=== PATIENT | female | born 1980 | race Caucasian/White ===

== ENCOUNTER 2019-03-24 09:59 | Emergency (ER) | payer OTHER ==
[2019-03-24 10:12] VITALS: BMI 34.2
[2019-03-24 10:14] VITALS: O2SAT 99
[2019-03-24] MEDS ORDERED: Sodium Chloride 0.9% 1,000 ML IV ONE (10:49)
[2019-03-24 10:55] LABS: BASO % 0.4 % (0.0-2.0); EOS # 0.4 K/uL (0.0-0.7); HEMOGLOBIN 12.3 g/dL (11.0-16.0); LYMPH # 1.9 K/uL (1.0-4.3); LYMPH % 25.6 % (20.0-40.0); MEAN CELL VOLUME 88.8 fL (81.0-99.0); MEAN CORPUSCULAR HEMOGLOBIN 30.5 pg (27.0-31.0); MEAN CORPUSCULAR HGB CONC 34.4 g/dL (33.0-37.0); MEAN PLATELET VOLUME 9.8 fL (7.2-11.7); MONO # 0.4 K/uL (0.0-0.8); MONO % 5.9 % (0.0-10.0); NEUT # 4.5 K/uL (1.8-7.0); NEUT % 62.1 % (50.0-75.0); RBC 4.03 Mil/uL (3.80-5.20); RED CELL DISTRIBUTION WIDTH 14.2 % (11.5-14.5); WHITE BLOOD COUNT 7.2 K/uL (4.8-10.8)
--- NOTE | 2019-03-24 11:06 | C.PDOC ---
History Of Present Illness 38 y/o female presents to the ER c/o right-sided abdominal pain and lower back pain for x3 days. Pt reports she saw some vaginal spotting today after urinating. Patient is , LMP was 03/20/19 and had (+) test at home. She denies vomiting, diarrhea, dysuria, fever. Time Seen by Provider: 03/24/19 10:12 Chief Complaint (Nursing): Abdominal Pain History Per: Patient History/Exam Limitations: no limitations Onset/Duration Of Symptoms: Days (x3) Current Symptoms Are (Timing): Still Present Severity: Mild Location Of Pain/Discomfort: RUQ Past Medical History Reviewed: Historical Data, Nursing Documentation, Vital Signs Vital Signs: Last Vital Signs Temp 98.4 F 03/24/19 10:13 Pulse 66 03/24/19 10:13 Resp 18 03/24/19 10:13 BP 111/68 03/24/19 10:13 Pulse Ox 99 03/24/19 10:13 - Medical History PMH: No Chronic Diseases Family History: States: No Known Family Hx - Social History Hx Tobacco Use: No Hx Alcohol Use: No Hx Substance Use: No - Immunization History Hx Tetanus Toxoid Vaccination: No Hx Influenza Vaccination: No Hx Pneumococcal Vaccination: No Review Of Systems Constitutional: Negative for: Fever, Chills Cardiovascular: Negative for: Chest Pain Respiratory: Negative for: Shortness of Breath Gastrointestinal: Positive for: Abdominal Pain (right ). Negative for: Vomiting Genitourinary: Positive for: Vaginal Bleeding (spotting ). Negative for: Dysuria, Vaginal Discharge Musculoskeletal: Positive for: Back Pain (low) Skin: Negative for: Rash Physical Exam - Physical Exam Appears: Well, Non-toxic, No Acute Distress Skin: Warm, Dry, No Rash Head: Normacephalic Oral Mucosa: Moist Cardiovascular: Rhythm Regular Respiratory: Normal Breath Sounds, No Rales, No Rhonchi, No Wheezing Gastrointestinal/Abdominal: Bowel Sounds, Soft, Tenderness (mild suprapubic and RLQ TTP), No Distention, No Guarding, No Rebound Back: No CVA Tenderness Extremity: No Pedal Edema, No Calf Tenderness Neurological/Psych: Oriented x3 ED Course And Treatment - Laboratory Results Result Diagrams: 03/24/19 10:48 03/24/19 10:48 O2 Sat by Pulse Oximetry: 99 (RA) Pulse Ox Interpretation: Normal - CT Scan/US TRANSVAGINAL US Other Rad Studies (CT/US): Read By Radiologist, Radiology Report Reviewed CT/US Interpretation: Accession No. : [id number]. Patient Name / ID : HOMAR AREVALO / [id number]. Exam Date : 03/24/2019 11:30:37 ( Approved ). Study Comment : Sex / Age : F / 38Y. Creator : Darcy Sharma MD. Dictator : Darcy Sharma MD. Pipe Fitter Supervisor Maintenance : Chief Lifestyle Officer : Darcy Sharma MD. Approver2 : Report Date : 03/24/2019 12:54:11. My Comment : . Date of service: 03/24/2019. PROCEDURE: OB Pelvic Ultrasound. HISTORY: PELVIC PAIN, . COMPARISON: None available. FINDINGS: UTERUS: Uterus measures 10.5 x 6.3 x 6.6 cm. Anteverted and normal in size. There is a 2.4 x 2.2 x 2.9 cm intramural posterior wall fibroid in the midbody of the uterus. The central endometrial echo complex measures 4 mm. There are 2 small cystic areas within the endometrium. No evidence for intrauterine gestational sac. CERVIX: Long and closed. No cervical abnormality seen. RIGHT OVARY: Measures 3.1 x 1.1 x 3.0 cm. No mass. Normal flow. LEFT OVARY: Measures 4.2 x 2.1 x 2.9 cm. No mass. Normal flow. There is a 1.2 x 0.7 x 1.1 cm simple cyst. FREE FLUID: None. OTHER FINDINGS: None. IMPRESSION: Two small cystic areas within the central endometrial echo complex. These are indeterminate and could represent cystic changes versus small early gestational sacs. Clinical and ultrasound follow-up is recommended for further evaluation. ABDOMINAL US Other Rad Studies (CT/US): Read By Radiologist, Radiology Report Reviewed CT/US Interpretation: Accession No. : [id number]. Patient Name / ID : GUNJAN AREVALO / [id number]. Exam Date : 03/24/2019 11:22:13 ( Approved ). Study Comment : Sex / Age : F / 38Y. Creator : Vivek Jaeger MD. Dictator : Vivek Jaeger MD. Pipe Fitter Supervisor Maintenance : Chief Lifestyle Officer : Vivek Jaeger MD. Approver2 : Report Date : 03/24/2019 12:07:10. My Comment : . Date of service: 03/24/2019. HISTORY: right flank pain. COMPARISON: None. TECHNIQUE: Sonographic evaluation of the right upper quadrant of the abdomen. FINDINGS: LIVER: Measures 15.0 cm in length. Normal echogenicity of the liver parenchyma. No mass. No intrahepatic bile duct dilatation. GALLBLADDER: Status post cholecystectomy. COMMON BILE DUCT: Measures 4 mm. No stones. No dilatation. PANCREAS: Unremarkable as visualized. No mass. No ductal dilatation. RIGHT KIDNEY: Measures 11.4 cm in length. Normal echogenicity. No calculus, mass, or hydronephrosis. AORTA: No aneurysmal dilatation. IVC: Unremarkable. OTHER FINDINGS: None . IMPRESSION: Status post cholecystectomy. Otherwise unremarkable examination. Progress Note: Blood work, UA, transvaginal and abdominal US ordered and reviewed. Patient given IV NS bolus. Reevaluation Time: 13:00 Reassessment Condition: Improved (On reassessment, patient is resting comfortably, in no pain or distress. UA (+) for UTI - PO Macrobid given. Beta only 995, US shows two small cystic structure in endometrial canal. Patient instructed to return in 48 hours for repeat beta quant and transvaginal US. She understands she should return sooner if symptoms worsen.) Disposition Counseled Patient/Family Regarding: Studies Performed, Diagnosis, Need For Followup - Disposition Referrals: [facility] [Outside] Disposition: HOME/ ROUTINE Disposition Time: 13:05 Condition: STABLE Additional Instructions: RETURN TO EMERGENCY ROOM IN 2 DAYS FOR REPEAT HORMONE LEVEL AND ULTRASOUND RETURN SOONER IF YOUR SYMPTOMS BECOME WORSE REGRESE AL SALN DE EMERGENCIA EN 2 CAI PARA REPETIR EL NIVEL DE HORMONA Y EL ULTRASONIDO REGRESAR PRONTO A SI STEVIE SNTOMAS SE HACEN PEOR Prescriptions: Nitrofurantoin Macrocrystals [Macrobid] 1 cap PO BID #14 cap Instructions: Bleeding With (DC) Forms: Email Data Source (Mohawk) Print Language: MONGOLIAN - Clinical Impression Clinical Impression: Pelvic pain affecting , Vaginal bleeding during , UTI in - Scribe Statement The provider has reviewed the documentation as recorded by the Scribalfa Ceja Do Provider Attestation: All medical record entries made by the Scribe were at my direction and person ally dictated by me. I have reviewed the chart and agree that the record accurately reflects my personal performance of the history, physical exam, medical decision making, and the department course for this patient. I have also personally directed, reviewed, and agree with the discharge instructions and disposition.
[2019-03-24 11:07] LABS: ALB/GLOB RATIO 1.3 (1.0-2.1); ALT/SGPT 17 U/L (9-52); AST/SGOT 29 U/L (14-36); BLOOD UREA NITROGEN 9 mg/dL (7-17); CALCIUM 8.5 mg/dl (8.6-10.4); GFR NON-AFRICAN AMERICAN > 60
[2019-03-24 11:35] LABS: SQUAMOUS EPITHIAL 8 /hpf (0-5); URINE BACTERIA MANY (<OCC); URINE BILIRUBIN NEGATIVE (NEGATIVE); URINE BLOOD 2+ (NEGATIVE); URINE CLARITY Clear (Clear); URINE COLOR Straw (YELLOW); URINE GLUCOSE (UA) NORMAL (Normal); URINE LEUKOCYTE ESTERASE NEG Leu/uL (Negative); URINE PROTEIN NEGATIVE (NEGATIVE); URINE UROBILINOGEN NORMAL mg/dL (0.2-1.0)
--- NOTE | 2019-03-24 12:10 | US ---
Date of service: 03/24/2019 HISTORY: right flank pain COMPARISON: None. TECHNIQUE: Sonographic evaluation of the right upper quadrant of the abdomen. FINDINGS: LIVER: Measures 15.0 cm in length. Normal echogenicity of the liver parenchyma. No mass. No intrahepatic bile duct dilatation. GALLBLADDER: Status post cholecystectomy COMMON BILE DUCT: Measures 4 mm. No stones. No dilatation. PANCREAS: Unremarkable as visualized. No mass. No ductal dilatation. RIGHT KIDNEY: Measures 11.4 cm in length. Normal echogenicity. No calculus, mass, or hydronephrosis. AORTA: No aneurysmal dilatation. IVC: Unremarkable. OTHER FINDINGS: None . IMPRESSION: Status post cholecystectomy. Otherwise unremarkable examination.
--- NOTE | 2019-03-24 12:58 | US ---
Date of service: 03/24/2019 PROCEDURE: OB Pelvic Ultrasound HISTORY: PELVIC PAIN, COMPARISON: None available. FINDINGS: UTERUS: Uterus measures 10.5 x 6.3 x 6.6 cm. Anteverted and normal in size. There is a 2.4 x 2.2 x 2.9 cm intramural posterior wall fibroid in the midbody of the uterus. The central endometrial echo complex measures 4 mm. There are 2 small cystic areas within the endometrium. No evidence for intrauterine gestational sac CERVIX: Long and closed. No cervical abnormality seen. RIGHT OVARY: Measures 3.1 x 1.1 x 3.0 cm. No mass. Normal flow. LEFT OVARY: Measures 4.2 x 2.1 x 2.9 cm. No mass. Normal flow. There is a 1.2 x 0.7 x 1.1 cm simple cyst. FREE FLUID: None. OTHER FINDINGS: None. IMPRESSION: Two small cystic areas within the central endometrial echo complex. These are indeterminate and could represent cystic changes versus small early gestational sacs. Clinical and ultrasound follow-up is recommended for further evaluation.
[2019-03-24 13:17] VITALS: BP 100/58; PULSE 64; RESP 18; TEMP 98.1
== END 2019-03-24 13:37 | disposition home or self-care (01) ==
LOC: C.ER 09:59
DX: O23.41 Unspecified infection of urinary tract in pregnancy, first trimester (principal); O26.891 Other specified pregnancy related conditions, first trimester; R10.2 Pelvic and perineal pain; O20.9 Hemorrhage in early pregnancy, unspecified; Z3A.00 Weeks of gestation of pregnancy not specified
CPT/HCPCS: 76705; 76805; 76817; 80053; 81001; 81025; 84702; 85025; 86850; 86900; 87086; 87181; 96360; 99285; J7030

== ENCOUNTER 2019-03-27 13:34 | Emergency (ER) | payer OTHER ==
[2019-03-27 13:34] VITALS: BMI 34.2
[2019-03-27 16:12] VITALS: O2SAT 100
--- NOTE | 2019-03-27 16:52 | C.PDOC ---
History Of Present Illness 39 y/o female presents to the ER for repeat US. Patient was evaluated for abdominal pain and back pain in [facility] 3 days ago. At the time, she had an US which showed questionable IUP and she had low beta levels. Patient reports that she was discharged and instructed to return to the ER for repeat US. She notes that she feels better today. Denies having fever,chills, nausea,vomiting, abdominal pain, back pain, vaginal bleeding, and vaginal discharge. Time Seen by Provider: 03/27/19 13:53 Chief Complaint (Nursing): Female Genitourinary History Per: Patient History/Exam Limitations: no limitations Past Medical History Reviewed: Historical Data, Nursing Documentation, Vital Signs Vital Signs: Last Vital Signs Temp 98.2 F 03/27/19 13:42 Pulse 64 03/27/19 16:11 Resp 19 03/27/19 16:11 BP 109/72 03/27/19 16:11 Pulse Ox 100 03/27/19 16:11 - Medical History PMH: No Chronic Diseases Surgical History: Cholecystectomy Family History: States: No Known Family Hx - Social History Hx Tobacco Use: No Hx Alcohol Use: No Hx Substance Use: No - Immunization History Hx Tetanus Toxoid Vaccination: No Hx Influenza Vaccination: No Hx Pneumococcal Vaccination: No Review Of Systems Except As Marked, All Systems Reviewed And Found Negative. Constitutional: Negative for: Fever, Chills Gastrointestinal: Negative for: Nausea, Vomiting, Abdominal Pain Genitourinary: Negative for: Vaginal Discharge, Vaginal Bleeding Physical Exam - Physical Exam Appears: Non-toxic, No Acute Distress Skin: Normal Color, Warm, Dry Head: Atraumatic, Normacephalic Eye(s): bilateral: Normal Inspection Nose: Normal Oral Mucosa: Moist Neck: Supple Chest: Symmetrical Cardiovascular: Rhythm Regular Respiratory: Normal Breath Sounds, No Rales, No Rhonchi, No Wheezing Gastrointestinal/Abdominal: Normal Exam, Soft, No Tenderness, No Guarding, No Rebound Neurological/Psych: Oriented x3, Normal Speech ED Course And Treatment - Laboratory Results Lab Results: Beta HCG, Quant 2671.90 mIU/ML 03/27/19 14:05 O2 Sat by Pulse Oximetry: 100 (RA) Pulse Ox Interpretation: Normal - CT Scan/US US- Pelvis Other Rad Studies (CT/US): Read By Radiologist, Radiology Report Reviewed CT/US Interpretation: Date of service: 03/27/2019. Indication: , pelvic pain. Comparison: 1st trimester ultrasound performed 03/24/19. Technique: Real-time transabdominal pelvic ultrasound was performed. In addition a transvaginal pelvic ultrasound was necessary to better depict pelvic anatomy. Findings: Uterus measures approximately 9.8 x 7.0 x 7.1 cm. Anteverted. 2.4 x 1.8 x 2.0 cm posterior uterine fibroid. Cervical length measures approximately 4.5 cm. The endometrium measures approximately 1.3 cm in diameter. Small cystic focus which may represent gestational sac measures 0.4 cm, too small for gestational age calculation. No evidence of pole or yolk sac at this time. The right ovary measures 2.5 x 1.6 x 2.3 cm. The left ovary measures 3.0 x 2.1 x 2.8 cm. Blood flow was demonstrated to both ovaries. Impression: Small cystic focus which may represent intrauterine gestational sac measures approximately 0.4 cm, too small for gestational age calculation. No evidence of pole or yolk sac at this time. Correlate clinically including quantitative beta HCG and follow-up as indicated. 2.4 x 1.8 x 2.0 cm posterior uterine fibroid. Progress Note: US- Pelvis and Beta-HCG ordered. Disposition - Disposition Disposition: HOME/ ROUTINE Disposition Time: 17:54 Condition: STABLE Additional Instructions: Follow up with OBGYN within 1-2 days. Return to ED in 3-4 days to repeat beta HCG and Pelvic US. Instructions: Acute Pelvic Pain (DC) Forms: [employer] (Panamanian) - Clinical Impression Clinical Impression: Pelvic pain affecting - PA / TAKER OUT / Resident Statement MD/DO has reviewed & agrees with the documentation as recorded. - Scribe Statement The provider has reviewed the documentation as recorded by the Ajit Manzo Provider Attestation All medical record entries made by the Scribe were at my direction and personally dictated by me. I have reviewed the chart and agree that the record accurately reflects my personal performance of the history, physical exam, medical decision making, and the department course for this patient. I have also personally directed, reviewed, and agree with the discharge instructions and disposition.
--- NOTE | 2019-03-27 17:28 | US ---
Date of service: 03/27/2019 Indication: , pelvic pain Comparison: 1st trimester ultrasound performed 03/24/19 Technique: Real-time transabdominal pelvic ultrasound was performed. In addition a transvaginal pelvic ultrasound was necessary to better depict pelvic anatomy. Findings: Uterus measures approximately 9.8 x 7.0 x 7.1 cm. Anteverted. 2.4 x 1.8 x 2.0 cm posterior uterine fibroid. Cervical length measures approximately 4.5 cm. The endometrium measures approximately 1.3 cm in diameter. Small cystic focus which may represent gestational sac measures 0.4 cm, too small for gestational age calculation. No evidence of pole or yolk sac at this time. The right ovary measures 2.5 x 1.6 x 2.3 cm. The left ovary measures 3.0 x 2.1 x 2.8 cm. Blood flow was demonstrated to both ovaries. Impression: Small cystic focus which may represent intrauterine gestational sac measures approximately 0.4 cm, too small for gestational age calculation. No evidence of pole or yolk sac at this time. Correlate clinically including quantitative beta HCG and follow-up as indicated. 2.4 x 1.8 x 2.0 cm posterior uterine fibroid.
[2019-03-27 18:28] VITALS: BP 126/81; PULSE 82; RESP 18; TEMP 98.1
== END 2019-03-27 18:28 | disposition home or self-care (01) ==
LOC: C.ER 13:34
DX: O26.891 Other specified pregnancy related conditions, first trimester (principal); R10.2 Pelvic and perineal pain; Z3A.00 Weeks of gestation of pregnancy not specified

== ENCOUNTER 2019-03-31 08:39 | Emergency (ER) | payer OTHER | END 2019-03-31 11:38 | disposition home or self-care (01) | LOC: C.ER 08:39 ==

== ENCOUNTER 2019-04-16 11:16 | Emergency (ER) | payer OTHER ==
[2019-04-16 11:27] VITALS: BMI 32.8
[2019-04-16 11:31] VITALS: RESP 18
[2019-04-16 11:49] LABS: SQUAMOUS EPITHIAL 8 /hpf (0-5); URINE BILIRUBIN NEGATIVE (NEGATIVE); URINE BLOOD 2+ (NEGATIVE); URINE CLARITY Hazy (Clear); URINE COLOR Yellow (YELLOW); URINE GLUCOSE (UA) NORMAL (Normal); URINE HYALINE CAST 0-2 /lpf (0-2); URINE LEUKOCYTE ESTERASE NEG Leu/uL (Negative); URINE PROTEIN 1+ mg/dL (NEGATIVE); URINE UROBILINOGEN NORMAL mg/dL (0.2-1.0)
[2019-04-16 11:51] LABS: HCG,QUALITATIVE URINE POSITIVE (NEGATIVE)
[2019-04-16] MEDS ORDERED: Sodium Chloride 0.9% 1,000 ML IV ONE (11:53)
--- NOTE | 2019-04-16 11:58 | C.PDOC ---
History Of Present Illness 39 year old female presents to ED with complaint of abdominal cramping that began last night. Patient states that the pain worsened today. Patient is P:1 A:2. Patient's last normal menstrual period was on 02/17. She also states th at she saw some blood twice after wiping from urinating. She also complains of nausea and headache. She denies fever, chill, and diarrhea. Time Seen by Provider: 04/16/19 11:41 Chief Complaint (Nursing): Abdominal Pain History Per: Patient History/Exam Limitations: no limitations Onset/Duration Of Symptoms: Hrs (12) Current Symptoms Are (Timing): Still Present Location Of Pain/Discomfort: Diffuse Radiation Of Pain To:: None Quality Of Discomfort: Cramping Associated Symptoms: Nausea. denies: Fever, Chills, Vomiting, Diarrhea Abnormal Vaginal Bleeding: Yes Last Menstral Period: 02/17/19 : 4 Para: 1 Miscarriage: 2 Past Medical History Reviewed: Historical Data, Nursing Documentation, Vital Signs Vital Signs: Last Vital Signs Temp 98.9 F 04/16/19 11:27 Pulse 73 04/16/19 11:27 Resp 18 04/16/19 11:27 BP 96/59 L 04/16/19 11:27 Pulse Ox 97 04/16/19 11:27 Primary Care Provider: Non [facility] Provider, - Medical History PMH: No Chronic Diseases Surgical History: Cholecystectomy Family History: States: Unknown Family Hx - Social History Hx Tobacco Use: No Hx Alcohol Use: No Hx Substance Use: No - Immunization History Hx Tetanus Toxoid Vaccination: No Hx Influenza Vaccination: No Hx Pneumococcal Vaccination: No Review Of Systems Constitutional: Negative for: Fever, Chills Gastrointestinal: Positive for: Nausea, Abdominal Pain (cramping). Negative for: Diarrhea, Constipation, Hematochezia Genitourinary: Positive for: Vaginal Bleeding. Negative for: Vaginal Discharge, Pelvic Pain Neurological: Positive for: Headache Physical Exam - Physical Exam Appears: Well, Non-toxic, No Acute Distress Skin: Normal Color, Warm, Dry Head: Atraumatic, Normacephalic Neck: Normal ROM, Supple Chest: Symmetrical, No Deformity Cardiovascular: Rhythm Regular, No Murmur Respiratory: No Accessory Muscle Use, No Rales, No Rhonchi, No Wheezing Gastrointestinal/Abdominal: Bowel Sounds (normoactive), Soft, No Tenderness, No Guarding, No Rebound Extremity: Capillary Refill (<2 seconds) Extremity: Bilateral: Atraumatic, Normal Color And Temperature, Normal ROM Pulses: Left Radial: Normal, Right Radial: Normal Neurological/Psych: Oriented x3, Normal Speech, Normal Cognition ED Course And Treatment - Laboratory Results Result Diagrams: 04/16/19 12:05 04/16/19 12:05 Lab Results: Urine Color Yellow (YELLOW) 04/16/19 11:41 Urine Clarity Hazy (Clear) 04/16/19 11:41 Urine pH 6.0 (5.0-8.0) 04/16/19 11:41 Ur Specific [place] 1.021 (1.003-1.030) 04/16/19 11:41 Urine Protein 1+ mg/dL (NEGATIVE) H 04/16/19 11:41 Urine Glucose (UA) Normal mg/dL (Normal) 04/16/19 11:41 Urine Ketones Negative mg/dL (NEGATIVE) 04/16/19 11:41 Urine Blood 2+ (NEGATIVE) H 04/16/19 11:41 Urine Nitrate Negative (NEGATIVE) 04/16/19 11:41 Urine Bilirubin Negative (NEGATIVE) 04/16/19 11:41 Urine Urobilinogen Normal mg/dL (0.2-1.0) 04/16/19 11:41 Ur Leukocyte Esterase Neg Maddi/uL (Negative) 04/16/19 11:41 Urine WBC (Auto) 1 /hpf (0-5) 04/16/19 11:41 Urine RBC (Auto) 15 /hpf (0-3) H 04/16/19 11:41 Ur Squamous Epith Cells 8 /hpf (0-5) H 04/16/19 11:41 Hyaline Casts 0-2 /lpf (0-2) 04/16/19 11:41 Urine HCG, Qual Positive (NEGATIVE) 04/16/19 11:41 Urine HCG, Qual Positive (NEGATIVE) 04/16/19 11:41 O2 Sat by Pulse Oximetry: 97 (in RA) Pulse Ox Interpretation: Normal - CT Scan/US Transvaginal US Other Rad Studies (CT/US): Read By Radiologist CT/US Interpretation: Impression: Live single intrauterine with estimated gestational age 6 weeks 4 days. heart rate 148.3 bpm. Advise an anomaly screen at 16-18 weeks gestational age. 4.0 x 3.7 x 4.3 cm probable posterior uterine fibroid. Medical Decision Making Medical Decision Making: Impression: 39 year old female presents to ED with complaint of abdominal cramping that began last night. Initial Plan: Transvaginal US type and screen CMP CBC B-HCG urine culture UA Reglan IV fluids 1437 pt with vag spotting when preg us show iup with fhr, no ovarian cysts. blood type O positive. d/c home with [address] man f/u and pelvis rest. Disposition Counseled Patient/Family Regarding: Studies Performed, Diagnosis, Need For Followup, Rx Given - Disposition Disposition: HOME/ ROUTINE Disposition Time: 14:35 Condition: GOOD Additional Instructions: Follow up with your warehouse operator in 1-2 days. Nothing in vagina. no sex., no douching, no tampons. Tylenol for pain if needed. Drink increased fluids, stay well hydrated. Carina un seguimiento con gibbs gineclogo en 1-2 kunz. [place] en la vagina. Sin sexo. Sin duchas ni tampones. Tylenol para el dolor si es necesario. Beber ms lquidos, mantenerse edson hidratado. Instructions: Threatened Miscarriage (DC) Forms: [facility] (Telugu), General Discharge Instructions - Clinical Impression Clinical Impression: Threatened - PA / BUILDING OPERATOR / Resident Statement / has reviewed & agrees with the documentation as recorded. (Sugar Echeverria) - Scribe Statement The provider has reviewed the documentation as recorded by the Scribe (Sugar Echeverria) All medical record entries made by the Scribe were at my direction and personally dictated by me. I have reviewed the chart and agree that the record accurately reflects my personal performance of the history, physical exam, medical decision making, and the department course for this patient. I have also personally directed, reviewed, and agree with the discharge instructions and disposition.
[2019-04-16 12:13] LABS: BASO % 0.5 % (0.0-2.0); EOS # 0.4 K/uL (0.0-0.7); EOS % 4.6 % (0.0-4.0); HEMOGLOBIN 12.8 g/dL (11.0-16.0); LYMPH # 2.3 K/uL (1.0-4.3); LYMPH % 28.8 % (20.0-40.0); MEAN CELL VOLUME 88.4 fL (81.0-99.0); MEAN CORPUSCULAR HEMOGLOBIN 30.4 pg (27.0-31.0); MEAN CORPUSCULAR HGB CONC 34.4 g/dL (33.0-37.0); MEAN PLATELET VOLUME 10.5 fL (7.2-11.7); MONO # 0.6 K/uL (0.0-0.8); NEUT # 4.7 K/uL (1.8-7.0); NEUT % 59.1 % (50.0-75.0); NRBC % 0.1 % (0.0-2.0); RBC 4.2 Mil/uL (3.80-5.20); RED CELL DISTRIBUTION WIDTH 14.6 % (11.5-14.5)
[2019-04-16 12:27] LABS: ALB/GLOB RATIO 1.1 (1.0-2.1); ALBUMIN 3.9 g/dL (3.5-5.0); ALT/SGPT 20 U/L (9-52); AST/SGOT 32 U/L (14-36); BLOOD UREA NITROGEN 15 mg/dL (7-17); CALCIUM 9.6 mg/dl (8.6-10.4); GFR NON-AFRICAN AMERICAN > 60
[2019-04-16] MEDS ORDERED: Sodium Chloride 0.9% 1,000 ML ONE (13:11)
[2019-04-16 14:01] VITALS: BP 96/64; PULSE 64; TEMP 98.4
--- NOTE | 2019-04-16 14:03 | US ---
Date of service: 04/16/2019 Indication: preg with ab pain Comparison: Ob transvaginal ultrasound performed 03/31/19 Technique: Real-time transabdominal pelvic ultrasound was performed. In addition a transvaginal pelvic ultrasound was necessary to better depict pelvic anatomy. Findings: The uterus measures approximately 11.6 x 7.0 x 7.5 cm. Anteverted. Cervix length measures approximately 4.1 cm. 4.0 x 3.7 x 4.3 cm heterogeneous uterine mass consistent with posterior uterine fibroid. There is a single intrauterine fetus present. 3 mm yolk sac. The gestational sac measures 2.1 cm and is compatible with a gestational age of 6 weeks 4 days. The crown-rump length measures 0.7 cm and is compatible with a gestational age of 6 weeks 4 days. There is heart motion which measured 148.3 BPM. The right ovary measures 2.7 x 2.4 x 2.3 cm. The left ovary measures 3.3 x 1.0 x 2.7 cm and 1.9 x 0.9 x 1.4 cm probable corpus luteum. Blood flow was demonstrated to both ovaries. Impression: Live single intrauterine with estimated gestational age 6 weeks 4 days. heart rate 148.3 bpm. Advise an anomaly screen at 16-18 weeks gestational age. 4.0 x 3.7 x 4.3 cm probable posterior uterine fibroid.
[2019-04-16 14:08] VITALS: O2SAT 97
== END 2019-04-16 15:01 | disposition home or self-care (01) ==
LOC: C.ER 11:16
DX: O20.0 Threatened abortion (principal); Z3A.01 Less than 8 weeks gestation of pregnancy
CPT/HCPCS: 76805; 76817; 80053; 81001; 84702; 84703; 85025; 86850; 86900; 87086; 96360; 99285; J2765; J7030

== ENCOUNTER 2019-04-27 10:40 | Emergency (ER) | payer OTHER ==
[2019-04-27 10:40] VITALS: BMI 32.8
[2019-04-27 10:45] VITALS: RESP 20
--- NOTE | 2019-04-27 11:08 | C.PDOC ---
History Of Present Illness 39 y/o female, A2, states she is about 8-10 weeks , presents to the ER complaining of cramping abdominal pain and vaginal spotting. Patient was evaluated for similar complaint in [facility] on 04/16/19. At the time, patient had labwork and US which showed live IUP. She notes that her symptoms had resolved but the symptoms returned 4 days ago. She states that she passed 1 clot today prompting her visit to the ER. Denies having fever,chills, headache,dizziness, nausea, vomiting, back pain. Denies chest pain or SOB. She notes she has an appointment at [place] for care tomorrow. No other complaints at this time. Time Seen by Provider: 04/27/19 10:49 Chief Complaint (Nursing): Female Genitourinary History Per: Patient History/Exam Limitations: no limitations Onset/Duration Of Symptoms: Days Current Symptoms Are (Timing): Still Present Severity: Moderate Past Medical History Reviewed: Historical Data, Nursing Documentation, Vital Signs Vital Signs: Last Vital Signs Temp 98.9 F 04/27/19 10:42 Pulse 70 04/27/19 10:42 Resp 20 04/27/19 10:42 BP 113/66 04/27/19 10:42 Pulse Ox 97 04/27/19 10:42 - Medical History PMH: No Chronic Diseases Surgical History: Cholecystectomy Family History: States: No Known Family Hx - Social History Hx Tobacco Use: No Hx Alcohol Use: No Hx Substance Use: No - Immunization History Hx Tetanus Toxoid Vaccination: No Hx Influenza Vaccination: No Hx Pneumococcal Vaccination: No Review Of Systems Except As Marked, All Systems Reviewed And Found Negative. Constitutional: Negative for: Fever, Chills Cardiovascular: Negative for: Chest Pain Respiratory: Negative for: Shortness of Breath Gastrointestinal: Positive for: Abdominal Pain. Negative for: Nausea, Vomiting Genitourinary: Positive for: Other (vaginal spotting) Physical Exam - Physical Exam Appears: Non-toxic, No Acute Distress Skin: Normal Color, Warm, Dry Head: Atraumatic, Normacephalic Eye(s): bilateral: Normal Inspection Nose: Normal Oral Mucosa: Moist Neck: Supple Chest: Symmetrical Cardiovascular: Rhythm Regular Respiratory: Normal Breath Sounds, No Rales, No Rhonchi, No Wheezing Gastrointestinal/Abdominal: Soft, No Tenderness, No Guarding, No Rebound Back: No Vertebral Tenderness Neurological/Psych: Oriented x3, Normal Speech ED Course And Treatment - Laboratory Results Result Diagrams: 04/27/19 11:21 04/27/19 11:21 O2 Sat by Pulse Oximetry: 97 (RA) Pulse Ox Interpretation: Normal - CT Scan/US US TRANSVAGINAL Other Rad Studies (CT/US): Read By Radiologist, Radiology Report Reviewed CT/US Interpretation: Accession No. : [id number]. Patient Name / ID : HOMAR AREVALO / [id number]. Exam Date : 04/27/2019 11:31:27 ( Approved ). Study Comment : Sex / Age : F / 39Y. Creator : Lorenzo Rivera. Dictator : Mane Dodson MD. Bobbin Presser : Wood Router Hand : Mane Dodson MD. Approver2 : Report Date : 04/27/2019 11:50:11. My Comment : . Pelvic ultrasound. HISTORY: . Vaginal bleeding. Comparison: 04/16/2019. Technique: Real-time sonography was performed through the pelvis utilizing transabdominal technique. Findings: Uterus: 12.1 x 7.9 x 7.6 centimeters. Homogeneous echotexture. Anteverted. Cervix measures 3.39 centimeters. Intrauterine gestational sac measuring 2.84 centimeters corresponding to a gestational age of 7 weeks and 5 days. Yolk sac measures 3.8 millimeters. [place]-rump length measures 1.88 centimeters corresponding to a gestational age of 8 weeks and 3 days. heart rate of 148 beats per minute. No free fluid in the pelvic cul-de-sac. Right ovary: 3.3 x 2.2 x 2.6 centimeters. Normal flow. Left ovary: 2.7 x 1.9 x 3.3 centimeters. Normal flow. Impression: Intrauterine corresponding to a gestational age of 8 weeks and 3 days by crown-rump length of 1.88 centimeters with heart rate of 148 beats per minute. Limited 1st trimester ultrasound for viability purposes only. Continued interval followup with serial ultrasound, serial HCG levels, and gynecological consultation would be helpful if clinically indicated. Medical Decision Making Medical Decision Makin04/27/19 1230 HCG quant today 99210, HCG from 04/16 71493. Patient , complains of pelvic cramping and light spotting. US wnl and hcg improved from previous visit. RH +. Patient had follow-up appointment with [facility] of the [facility] of hearing tomorrow. Instructed on pelvic rest, no intercourse or tampons. Will return with any weakness, SOB, dizziness, worsening pain or bleeding. Well appearing and stable for outpatient follow-up. Disposition Counseled Patient/Family Regarding: Studies Performed, Diagnosis, Need For Followup - Disposition [facility] Disposition: HOME/ ROUTINE Disposition Time: 12:52 Condition: GOOD Additional Instructions: Follow-up with clinic and [facility] of the [facility] of hearing tomorrow. Rest. No intercourse or tampons. Return if symptoms worsen or persist. Instructions: Threatened Miscarriage Forms: [employer] (Nepali), Gen Discharge Inst Nepali Print Language: TAIWANESE - Clinical Impression Clinical Impression: Threatened - PA / FURNACE REPAIRER / Resident Statement MD/DO has reviewed & agrees with the documentation as recorded. - Scribe Statement The provider has reviewed the documentation as recorded by the Abaibe Briseyda Manzo Provider Attestation All medical record entries made by the Abaibalfa were at my direction and personally dictated by me. I have reviewed the chart and agree that the record accurately reflects my personal performance of the history, physical exam, medical decision making, and the department course for this patient. I have also personally directed, reviewed, and agree with the discharge instructions and disposition.
[2019-04-27 11:26] LABS: BASO # 0.1 K/uL (0.0-0.2); BASO % 0.7 % (0.0-2.0); EOS # 0.3 K/uL (0.0-0.7); EOS % 3.7 % (0.0-4.0); HEMOGLOBIN 12.6 g/dL (11.0-16.0); LYMPH # 2.4 K/uL (1.0-4.3); LYMPH % 31.2 % (20.0-40.0); MEAN CELL VOLUME 87.8 fL (81.0-99.0); MEAN CORPUSCULAR HEMOGLOBIN 30.4 pg (27.0-31.0); MEAN CORPUSCULAR HGB CONC 34.6 g/dL (33.0-37.0); MEAN PLATELET VOLUME 10.2 fL (7.2-11.7); MONO # 0.5 K/uL (0.0-0.8); MONO % 6.7 % (0.0-10.0); NEUT # 4.4 K/uL (1.8-7.0); NEUT % 57.7 % (50.0-75.0); NRBC % 0.1 % (0.0-2.0); RBC 4.15 Mil/uL (3.80-5.20); WHITE BLOOD COUNT 7.7 K/uL (4.8-10.8)
[2019-04-27 11:38] LABS: ALB/GLOB RATIO 1.3 (1.0-2.1); ALBUMIN 3.9 g/dL (3.5-5.0); ALT/SGPT 28 U/L (9-52); AST/SGOT 32 U/L (14-36); BLOOD UREA NITROGEN 10 mg/dL (7-17); CALCIUM 8.6 mg/dl (8.6-10.4); GFR NON-AFRICAN AMERICAN > 60
--- NOTE | 2019-04-27 12:19 | US ---
Pelvic ultrasound HISTORY: . Vaginal bleeding. Comparison: 04/16/2019 Technique: Real-time sonography was performed through the pelvis utilizing transabdominal technique. Findings: Uterus: 12.1 x 7.9 x 7.6 centimeters. Homogeneous echotexture. Anteverted. Cervix measures 3.39 centimeters. Intrauterine gestational sac measuring 2.84 centimeters corresponding to a gestational age of 7 weeks and 5 days. Yolk sac measures 3.8 millimeters. [place]-rump length measures 1.88 centimeters corresponding to a gestational age of 8 weeks and 3 days. heart rate of 148 beats per minute. No free fluid in the pelvic cul-de-sac. Right ovary: 3.3 x 2.2 x 2.6 centimeters. Normal flow. Left ovary: 2.7 x 1.9 x 3.3 centimeters. Normal flow. Impression: Intrauterine corresponding to a gestational age of 8 weeks and 3 days by crown-rump length of 1.88 centimeters with heart rate of 148 beats per minute. Limited 1st trimester ultrasound for viability purposes only. Continued interval followup with serial ultrasound, serial HCG levels, and gynecological consultation would be helpful if clinically indicated.
[2019-04-27 12:28] LABS: SQUAMOUS EPITHIAL 7 /hpf (0-5); URINE BACTERIA FEW (<OCC); URINE BILIRUBIN NEGATIVE (NEGATIVE); URINE BLOOD 2+ (NEGATIVE); URINE CLARITY Hazy (Clear); URINE COLOR Yellow (YELLOW); URINE GLUCOSE (UA) NORMAL (Normal); URINE LEUKOCYTE ESTERASE NEG Leu/uL (Negative); URINE PROTEIN 1+ mg/dL (NEGATIVE); URINE UROBILINOGEN NORMAL mg/dL (0.2-1.0)
[2019-04-27 13:13] VITALS: BP 104/65; PULSE 65; TEMP 98.3; O2SAT 97
== END 2019-04-27 13:11 | disposition home or self-care (01) ==
LOC: C.ER 10:40
DX: O20.0 Threatened abortion (principal); Z3A.08 8 weeks gestation of pregnancy